=== PATIENT | male | born 1970 | race Caucasian/White ===

== ENCOUNTER → 2023-04-07 09:37 | Outpatient (CLI) | payer BC, SELFPAY ==
--- NOTE | ~2023-04-07 | MR_ITS ---
MRI of the right shoulder Technique: Axial proton-density fat-sat images, coronal proton density fat-sat and T2 fat-sat images, and sagittal T1-weighted and T2 fat-sat images were acquired. Clinical History: Pain Findings: There is mild AC joint degenerative change. Coracoclavicular, coracoacromial, and coracohum eral ligaments are intact. Supraspinatus and infraspinatus tendons are intact, without partial or full-thickness tear. There is mild supraspinatus tendinosis. Subscapularis tendon is intact, with mild tendinosis. Tendon of long h ead of the biceps is intact. No labral tear identified. Inferior glenohumeral ligament is intact. No effusion or degenerative change of the glenohumeral join t. No fluid distention of the subacromial/subdeltoid bursa. No muscle atrophy or edema. IMPRESSION: No rotator cuff or labral tear. Mild AC joint degenerative change. Mild rotator cuff tendinosis. Reviewed, dictated and finalized at [facility]. [facility]
== END ==
PROVIDERS: PCP Internal Medicine; Visit Provider Physician Assistant
DX: M19.011 Primary osteoarthritis, right shoulder (principal)
CPT/HCPCS: 73221